=== PATIENT | female | born 1975 | race Caucasian/White ===

== ENCOUNTER 2023-12-27 09:35 | Outpatient (CLI) | payer OTHER, SELFPAY | END 2023-12-27 09:36 | disposition home or self-care (01) | LOC: FRMREF 09:36 | PROVIDERS: Visit Provider Dermatology | DX: L08.9 Local infection of the skin and subcutaneous tissue, unspecified (principal) | CPT/HCPCS: 87070 ==

== ENCOUNTER 2024-01-29 15:08 | Outpatient (CLI) | payer OTHER, SELFPAY | END 2024-01-29 15:09 | disposition home or self-care (01) | LOC: NFLDREF 01-30 06:19 | PROVIDERS: PCP Nurse Practitioner Family; Referring Provider Nurse Practitioner Family; Visit Provider Nurse Practitioner Family | DX: R30.0 Dysuria (principal) | CPT/HCPCS: 87086 ==

== ENCOUNTER 2024-02-14 14:37 | Outpatient (CLI) | payer OTHER, SELFPAY | END 2024-02-14 14:38 | disposition home or self-care (01) | PROVIDERS: PCP Nurse Practitioner Family; Visit Provider Nurse Practitioner Family | DX: Z13.220 Encounter for screening for lipoid disorders (principal); R53.83 Other fatigue | CPT/HCPCS: 80053; 80061; 84443 ==

== ENCOUNTER 2024-05-08 10:15 | Outpatient (CLI) | payer OTHER, SELFPAY ==
--- NOTE | 2024-05-08 11:44 | W.ANESCHARGE ---
Anesthesia Charges Start Date/Time Anesthesia Start Date: 05/08/24 Anesthesia Start Time: 12:12 Stop Date/Time Anesthesia Stop Date: 05/08/24 Anesthesia Stop Time: 12:39
--- NOTE | 2024-05-08 12:42 | W.ANESCHARGE ---
Anesthesia Charges Start Date/Time Anesthesia Start Date: 05/08/24 Anesthesia Start Time: 12:12 Stop Date/Time Anesthesia Stop Date: 05/08/24 Anesthesia Stop Time: 12:39
== END 2024-05-08 10:16 | disposition home or self-care (01) ==
PROVIDERS: PCP Nurse Practitioner Family; Visit Provider Surgery
DX: Z12.11 Encounter for screening for malignant neoplasm of colon (principal); K63.5 Polyp of colon
CPT/HCPCS: 00811; 45385; 88305; J2704

== ENCOUNTER 2025-02-19 13:53 | Outpatient (CLI) | payer OTHER, SELFPAY | END 2025-02-19 13:54 | disposition home or self-care (01) | LOC: FRMREF 13:55 | PROVIDERS: PCP Nurse Practitioner Family; Visit Provider Nurse Practitioner Family | DX: N95.1 Menopausal and female climacteric states (principal); R53.83 Other fatigue | CPT/HCPCS: 84443 ==

== ENCOUNTER 2025-05-14 17:55 | Outpatient (CLI) | payer OTHER, SELFPAY | END 2025-05-14 17:56 | disposition home or self-care (01) | LOC: NFLDREF 05-19 16:07 | PROVIDERS: PCP Nurse Practitioner Family; Referring Provider Nurse Practitioner Family; Visit Provider Physician Assistant | DX: N39.0 Urinary tract infection, site not specified (principal); N76.0 Acute vaginitis; B96.89 Other specified bacterial agents as the cause of diseases classified elsewhere | CPT/HCPCS: 87086 ==